=== PATIENT | male | born 1955 | race Caucasian/White ===

== ENCOUNTER 2018-09-19 11:06 | Day surgery (SDC) | payer OTHER ==
[~2018-09-19] VITALS: Ht 167.6 cm; Wt 78.0 kg
[~2018-09-19 11:06] MED LIST: CLARITIN; EFAV1TAB4; HYDR-843 PO; KETO5DRO2 RIGHT EYE; OFLO5DRO46 RIGHT EYE; OMEP40CA6 PO; PRED5DRO20 RIGHT EYE; ZOLP10TA PO
[2018-09-19] MEDS ORDERED: MOXIFLOXACIN 0.5% 3 ML OPH OPER SCH (12:30)
[2018-09-19] MEDS ORDERED: PROPARACAINE 0.5% 15 ML OPH OPER SCH (12:30)
[2018-09-19] MEDS ORDERED: CYCLOPENTOLATE 1% 2 ML OPH OPER SCH (12:30)
[2018-09-19] MEDS ORDERED: BSS PLUS 500 ML + VANCO 10MG, GENT 4 MG, EPI 0.25 MG IRR SCH ×4 (12:30)
[2018-09-19] MEDS ORDERED: TROPICAMIDE 1% 15 ML OPH OPER SCH (12:30)
[2018-09-19] MEDS ORDERED: PHENYLephrine 2.5% 15 ML OPH OPER SCH (12:30)
--- NOTE | 2018-09-19 12:35 | PREAC ---
Date/Time of Note Date/Time of Note DATE: 09/19/18 TIME: 12:34 Anesthesia Eval and Record Evaluation Time Pre-Procedure Interview DATE: 09/19/18 TIME: 12:34 Age 62 Sex male NPO: 8 hrs Preoperative diagnosis LEFT EYE CATARACT Planned procedure LEFT EYE CATARACT REMOVAL WITH IOL Past Medical History Past Medical History: Includes Pulm: Asthma GI: GERD Infection(s): HIV Surgery & Anesthesia Issues No known issue Meds Anticoagulation: No Beta Abner within 24 hr: No Reason Beta Abner not given: Pt. not on B-Abner Reported Medications Prednisolone Acetate* (Pred Forte*) 5 Ml Susp, 1 DROP RIGHT EYE QID, EA 09/19/18 Ofloxacin* (Ocuflox*) 0.3%-5 Ml Ophth Drops, 1 DROP RIGHT EYE QID, BOTTLE 09/19/18 Ketorolac Tromethamine Oph (Acular LS) 5 Ml Drops, 1 DROP RIGHT EYE QID, #1 BOTTLE 09/19/18 Zolpidem Tartrate* (Ambien*) 10 Mg Tablet, 10 MG PO QHS PRN for INSOMNIA, TAB 09/19/18 Hydroxyzine Hcl* (Hydroxyzine Hcl*) 25 Mg Tablet, 25 MG PO QHS, #30 TAB 09/19/18 Omeprazole* (Omeprazole*) 40 Mg Capsule.dr, 40 MG PO DAILY, #30 CAP 09/19/18 Discontinued Reported Medications [Claritin] No Conflict Check 08/15/10 Jjfatxyek-Kcjhsusrfxlly-Spuyokemd (Atripla) 1 Tab Tablet 08/15/10 Current Medications Proparacaine HCl (Alcaine 0.5%) 1 drop PRE-OP OPER ; Start 09/19/18 at 12:30 Cyclopentolate HCl (Ak-Pentolate 1% Oph) 1 drop Q10 MIN X 3 OPER ; Start 09/19/18 at 12:30 Phenylephrine HCl (Ak-Dilate 2.5%) 1 drop Q10 MIN X 3 OPER ; Start 09/19/18 at 12:30 Tropicamide (Mydriacyl 1%) 1 drop Q10 MIN X3 OPER ; Start 09/19/18 at 12:30 Moxifloxacin HCl (Vigamox) 1 drop Q10 MIN X 3 OPER ; Start 09/19/18 at 12:30 Sod Cl/Ca Cl/Mg Cl/Pot Cl/ Vancomycin HCl/ Gentamicin Sulfate/ Epinephrine INTRA-OP IRR ; Start 09/19/18 at 12:30 Meds reviewed: Yes Allergies Coded Allergies: No Known Allergies (Verified Allergy, Mild, 09/19/18) Allergies Reviewed: Yes Labs/Studies Labs Reviewed: Reviewed by anesthesiologist test: N/A Studies: ECG (SR RBBB), CXR Pre-procedure Exam Airway: Adequate mouth opening Mallampati: Mallampati II Teeth: Normal Lung: Normal Heart: Normal ASA Physical Status ASA physical status: 2 Emergency: None Planned Anesthetic General/MAC: MAC Pre-operative Attestations Prior to commencing anesthesia and surgery, the patient was re-evaluated, there was verification of: *The patient's identity *The results of appropriate recent lab work and preoperative vital signs *The above evaluation not changing prior to induction *Anesthetic plan, risk benefits, alternative and complications discussed with patient/family; questions answered; patient/family understands, accepts and wishes to proceed. YAQUELIN BAEZA Sep 19, 2018 12:35
[2018-09-19 13:09] VITALS: BP 129/76; PULSE 62; RESP 16
[2018-09-19 13:11] VITALS: Ht 167.6 cm; Wt 78.0 kg
[2018-09-19] MEDS ORDERED: LIDOCAINE 1% (MPF) 10 ML INJ ONE (14:18)
[2018-09-19] MEDS ORDERED: NA HYALURONATE/CHONDROITIN 0.5 ML SYG ONE (14:18)
[2018-09-19] MEDS ORDERED: MIDAZOLAM 1 MG/ML 2 ML INJ ONE (14:36)
[2018-09-19] MEDS ORDERED: FENTAnyl 50 MCG/ML VIAL ONE (14:36)
[2018-09-19] MEDS ORDERED: hydrALAzine 20 MG INJ ONE (15:36)
[2018-09-19 15:55] VITALS: BP 137/77; PULSE 74; RESP 20
[2018-09-19 16:00] VITALS: BP 144/64; PULSE 74; RESP 20
--- NOTE | 2018-09-19 16:02 | PAC ---
Date/Time of Note Date/Time of Note DATE: 09/19/18 TIME: 16:02 Post-Anesthesia Notes Post-Anesthesia Note Last documented vital signs Vital Signs Date Temp Pulse Resp B/P (MAP) Pulse Ox O2 O2 Flow FiO2 Time Delivery Rate 09/19/18 97.7 62 16 129/76 98 Room Air 16:00 (93) Activity: WNL Respiratory function: WNL Cardiovascular function: WNL Mental status: Baseline Pain reasonably controlled: Yes Hydration appropriate: Yes Nausea/Vomiting absent: Yes MOSES JACQUES MD Sep 19, 2018 16:02
[2018-09-19 16:10] VITALS: BP 132/60; PULSE 74; RESP 18
--- NOTE | 2018-09-19 16:19 | OPR ---
Date/Time of Note Date/Time of Note DATE: 09/19/18 TIME: 16:04 Operative Report Free Text/Dictation OPERATIVE SUMMARY Pre op dx- cataract left eye post op dx -same SURGEON - nicole mcgee EBL; minimal PROCEDURE; cataract removal by phakoemulsification with intraocular lens implant left eye intraocular lens implant: crystalens ao2uv +19.0D anaesthesia: topical, mac, iv sedation complications: none PROCEDURE NOTE A full discussion with pt regarding alternatives, risks, benefits and possible complications were discussed with the pt. including loss of vision, loss of the eye, infection, rd, glaucoma, hypotony, irregular ocular anatomy, wound leak, displacement of intraocular lens, improper IOL power and other problems. also risks of anaeshesia including brain damage, stroke, coma and . the pt appeared to understand and decided to proceed with the surgery. pt was prepped and draped in ususal manner for intraocular surgery. two stab incisions were made at 12 and 6 oclock postion. intraocular pf lidcaine was instilled. a keratome was then used to enter the eye at the temporal limbus. a curved cystotome on viscoelastic was used to create a curvilinear capsulorhexis. the flap was removed with utrata forcepts. hydrodilenation and hydrodisection was done with bss. using the divide an conquer method, the lens nucleus was removed. bimanual irrigtion and suction was then use to remove the cortex. the capsule was inflated with viscoelastic and the lens was injected into the capsular bag. the proper orientation of the lens was confirmed. the lens was rotated 360 degree to assure proper capsular placement. the viscoelastic was removed, and 10-0 interrupted sutures secured the wound. the wound was checked for leaks and none were found. pt tolerated procedure wel. no complications were encounterd. to post ananesthesia in good condition. MD PRAKASH Packer WARREN J MD Sep 19, 2018 16:19
[2018-09-19] MEDS ORDERED: FENTAnyl 50 MCG/ML VIAL IV PRN (16:30)
[2018-09-19] MEDS ORDERED: HYDROmorphONE 1 MG/5 ML IV SYRINGE IV PRN (16:30)
[2018-09-19] MEDS ORDERED: ONDANSETRON 4 MG INJ IV PRN (16:30)
[2018-09-19] MEDS ORDERED: OXYCODONE/ACETAMINOPHEN (5/325) TAB PO PRN (16:30)
== END 2018-09-19 16:46 | disposition home or self-care (01) ==
LOC: SDS 11:06
PROVIDERS: ATTEND Ophthalmology
DX: H26.8 Other specified cataract (principal); J45.909 Unspecified asthma, uncomplicated
CPT/HCPCS: 66984; J0171; J0360; J1580; J2250; J3010; J3370; Z7512; Z7610

== ENCOUNTER 2018-10-31 06:34 | Day surgery (SDC) | payer OTHER ==
[2018-10-31] VITALS (9 sets, daily range): BP systolic 114–165; BP diastolic 59–92; PULSE 60–80; RESP 16–23; Ht 167.6 cm; Wt 79.8 kg
[~2018-10-31] VITALS: Ht 167.6 cm; Wt 79.8 kg
[~2018-10-31 06:34] MED LIST changes: +ALPR0.5T6 PO; +BICT1TAB PO; -CLARITIN; -EFAV1TAB4; +LISI10TA2 PO; +OMEP40CA38 PO; -OMEP40CA6 PO
[2018-10-31] MEDS ORDERED: PHENYLephrine 2.5% 15 ML OPH OPER SCH (08:00)
[2018-10-31] MEDS ORDERED: TROPICAMIDE 1% 15 ML OPH OPER SCH (08:00)
[2018-10-31] MEDS ORDERED: MOXIFLOXACIN 0.5% 3 ML OPH OPER SCH (08:00)
[2018-10-31] MEDS ORDERED: CYCLOPENTOLATE 1% 2 ML OPH OPER SCH (08:00)
[2018-10-31] MEDS ORDERED: PROPARACAINE 0.5% 15 ML OPH OPER SCH (08:00)
[2018-10-31] MEDS ORDERED: BSS PLUS 500 ML + VANCO 10MG, GENT 4 MG, EPI 0.25 MG IRR SCH ×4 (08:30)
[2018-10-31] MEDS ORDERED: LABETALOL HCL 20MG INJ IV PRN (09:00)
[2018-10-31] MEDS ORDERED: MEPERIDINE 25 MG INJ IV PRN (09:00)
[2018-10-31] MEDS ORDERED: hydrALAzine 20 MG INJ IV PRN (09:00)
[2018-10-31] MEDS ORDERED: OXYCODONE/ACETAMINOPHEN (5/325) TAB PO PRN ×2 (09:00)
[2018-10-31] MEDS ORDERED: FENTAnyl 50 MCG/ML VIAL IV PRN ×3 (09:00)
[2018-10-31] MEDS ORDERED: ALBUTEROL 0.083% (NEB) 2.5 MG/3 ML AMP HHN PRN (09:00)
[2018-10-31] MEDS ORDERED: ONDANSETRON 4 MG INJ IV PRN (09:00)
[2018-10-31] MEDS ORDERED: MIDAZOLAM 1 MG/ML 2 ML INJ ONE (10:08)
[2018-10-31] MEDS ORDERED: LIDOCAINE 1% (MPF) 5 ML VIAL INJ ONE (10:10)
[2018-10-31] MEDS ORDERED: TETRACAINE 0.5% 4 ML OPH RIGHT EYE ONE (10:10)
[2018-10-31] MEDS ORDERED: FENTAnyl 50 MCG/ML VIAL ONE (10:15)
[2018-10-31] MEDS ORDERED: ONDANSETRON 4 MG INJ ONE (10:15)
[2018-10-31] MEDS ORDERED: hydrALAzine 20 MG INJ ONE (10:16)
== END 2018-10-31 12:25 | disposition home or self-care (01) ==
LOC: SDS 06:34
PROVIDERS: ATTEND Ophthalmology
DX: H26.9 Unspecified cataract (principal); E11.9 Type 2 diabetes mellitus without complications; I10 Essential (primary) hypertension
CPT/HCPCS: 66984; J0171; J0360; J1580; J2250; J2405; J3010; J3370; Z7512; Z7610